=== PATIENT | male | born 1990 | race Caucasian/White ===

== ENCOUNTER 2019-05-12 12:06 | Emergency (ER) | payer SELFPAY ==
[2019-05-12 12:07] VITALS: BP 131/94; PULSE 101; RESP 18; TEMP 36.8; O2SAT 98; BMI 26.6
--- NOTE | 2019-05-12 12:28 | ED.VIS.GI ---
History of Present Illness Chief Complaint: GI Bleed Narrative: Patient presenting for evaluation secondary to blood in the stool. Patient reports that today he was helping his mother lift some sliding glass doors they were extremely heavy. He reports that he was straining while lifting these. He reports that when he went home from this, he had a bowel movements that was associated with bright red blood. Patient denies that he is having any sort of pain associated with this. Denies prior similar episodes. Patient denies any history of hemorrhoids, easy bruising or bleeding, or anticoagulant use. He denies any frequent use of NSAIDs. Review of systems otherwise negative. Past Medical History - Allergies and Home Meds Allergies/Adverse Reactions: Allergies cefaclor [From Ceclor] Allergy (Verified 05/12/19 12:09) Unknown Primary Care Physician: NOT,DEFINED [Primary Care Provider] - Review of Systems All systems negative except as indicated Gastrointestinal: Reports: Hematochezia. Denies: Abdominal pain Physical Exam Vital Signs/Narrative: Vital Signs Temp Pulse Resp BP Pulse Ox 05/12/19 12:07 98.2 F 101 H 18 131/94 H 98 General: Well nourished, Well developed, No Acute Distress Head: Normocephalic, Atraumatic Eyes: Perrl, EOMI ENT: Moist mucous membranes, No rhinorrhea Neck: Supple, Nontender Cardiovascular: Regular rate, Regular rhythm, No murmurs Respiratory: No distress, CTA bilaterally, Chest nontender Abdomen: Soft, Nontender, Nondistended, Normal bowel sounds Rectal: Deferred Back: Nontender, Normal Inspection Extremities: Nontender, No edema Skin: Normal color, No rash Neurological: Alert, Oriented x3, Cranial nerves II-XII grossly intact, Normal Strength, Normal Sensation Psychological: Normal affect, Normal Mood Diagnostic/Tx/Re-eval - Medical Decision Making Patient presented secondary to an episode of rectal bleeding after straining while lifting heavy objects. I did defer the patient's rectal exam, as his history really seems consistent with likely rupturing a internal hemorrhoid. He has no risks for severe GI bleeding. Patient is stable vital signs. Patient was recommended signs and symptoms which to return, given reassurance, the patient was discharged. Disposition: Home ED Disposition - Plan for ED Patient: Disposition: Home or Assisted Living Diagnosis: Hemorrhoids Instructions: Hemorrhoids Additional Instructions: Follow-up with your primary care doctor as needed
== END 2019-05-12 12:40 | disposition home or self-care (01) ==
LOC: ED 12:36
PROVIDERS: Emergency Provider Emergency Medicine; Family Provider Family Medicine; PCP Family Medicine
DX: K64.8 Other hemorrhoids (principal)
CPT/HCPCS: 99282

== ENCOUNTER → 2025-10-26 | Outpatient (CLI) | payer OTHER, SELFPAY ==
--- NOTE | 2025-10-26 15:39 | RAD_ITS ---
PROCEDURE: RIBS PAL MIN 4V W/PA CHEST 10/26/2025 REASON FOR EXAM: LEFT INJURY TECHNIQUE: Procedure Code: RADRIBB Modality: DX Procedure: RIBS PAL MIN 4V W/PA CHEST COMPARISON: None FINDINGS: Findings: I suspect an undisplaced fractures of the left 6th and 7th ribs anterolaterally. Other: RAD/Ribs Pal Min 4V w/PA Chest IMPRESSION: I suspect an undisplaced fractures of the left 6th and 7th ribs anterolaterally . Reading Location: [id number]
== END | disposition home or self-care (01) ==
PROVIDERS: PCP Family Medicine; Referring Provider Family Medicine; Visit Provider Family Medicine
DX: R07.89 Other chest pain (principal)
CPT/HCPCS: 71111